=== PATIENT | female | born 1955 | race Caucasian/White ===

== ENCOUNTER 2020-10-13 18:35 | Emergency (ER) | payer MEDICARE, OTHER ==
[~2020-10-13] VITALS: Ht 154.9 cm; Wt 50.8 kg
[2020-10-13] MEDS ORDERED: OMEPRAZOLE20 M2 PO (19:32)
[2020-10-13] MEDS ORDERED: ZOCOR20 MG PO (19:32)
[2020-10-13] MEDS ORDERED: HYDROCHLOROTHIA25 MG PO (19:32)
[2020-10-13] MEDS ORDERED: BAYER CHEWABLE81 MG PO (19:32)
[2020-10-13] MEDS ORDERED: CEFDINIR300 MG PO (19:57)
== END 2020-10-13 20:19 | disposition home or self-care (01) ==
LOC: ED 18:35
DX: N39.0 Urinary tract infection, site not specified (principal); Z88.2 Allergy status to sulfonamides; Z79.899 Other long term (current) drug therapy; Z79.82 Long term (current) use of aspirin
CPT/HCPCS: 81001; 99284